=== PATIENT | male | born 1985 | race Caucasian/White ===

== ENCOUNTER 2018-09-21 14:16 | Emergency (ER) | payer BC ==
[~2018-09-21] VITALS: Ht 185.4 cm; Wt 113.4 kg
[~2018-09-21 14:16] MED LIST: ALBUTEROL2.5 MG/31 INH; RANITIDINE 150150 M1; SYNTHROID25 MCG; ZOFRAN 4 MG ORAL4 M1 DIS
[2018-09-21] MEDS ORDERED: PROAIR HFA8.5 GM (14:28)
[2018-09-21] MEDS ORDERED: VENTOLIN HFA 1818 GM INH (15:04)
[2018-09-21] MEDS ORDERED: PREDNISONE 20 M20 MG PO (15:04)
[2018-09-21 15:11] LABS: INFLUENZA A ANTIGEN None Detected (None Detect); INFLUENZA B ANTIGEN None Detected (None Detect)
[2018-09-21 15:29] VITALS: BP 140/86
== END 2018-09-21 15:29 | disposition home or self-care (01) ==
LOC: M.ERS 14:16
PROVIDERS: Nurse Practitioner Psychiatric/Mental Health
DX: J45.901 Unspecified asthma with (acute) exacerbation (principal); E03.9 Hypothyroidism, unspecified